=== PATIENT | female | born 2000 | race African-American/Black ===

== ENCOUNTER 2025-05-25 07:18 | Inpatient (IN) | payer BC, OTHER ==
[~2025-05-25] VITALS: Ht 149.9 cm; Wt 123.6 kg
--- NOTE | 2025-05-25 07:57 | ED.PDOC ---
History of Present Illness HPI Comments 25 y/o obese F presents with c/c of nonradiating, right flank pain. Patient endorses on sudden, unprovoked, and atraumatic onset of pain, with no prior history of, that awoke her from her sleep, this morning. She reports on having associated increase urine frequency. Denial of any abdominal pain, nausea, vom iting, dysuria, fever, or further acute symptoms. No reported previous abdominal surgeries, history of kidney stones or medication use, or current . 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 History Social History Smoker: Non-Smoker Alcohol: Denies ETOH Use Drugs: Denies Drug Use Lives In: Home All Other Systems: Reviewed and Negative (Comprehensive review of systesm are negative unless stated in HPI) Physical Exam General Appearance: No Apparent Distress, Obese HEENT: Normal ENT Inspection, Pharynx Normal, TMs Normal Neck: Full Range of Motion, Non-Tender, Normal, Normal Inspection Respiratory: Chest Non-Tender, Lungs Clear, No Accessory Muscle Use, No Respiratory Distress, Normal Breath Sounds Cardiovascular: No Edema, No JVD, No Murmur, No Gallop, Normal Peripheral Pulses, Regular Rate/Rhythm Breast Exam: Deferred Gastrointestinal: No Organomegaly, No Pulsatile Mass, Normal Bowel Sounds, Soft, Tenderness (Right CVA) Genitalia: Deferred Pelvic: Deferred Rectal: Deferred Extremities: No calf tenderness, Normal capillary refill, Normal inspection, Normal range of motion, Non-tender, No pedal edema Musculoskeletal : Location: Right Extremity Location: Other (CVA tenderness) Apperance: Normal Neurologic: Alert, 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 Was a procedure done?: No Differential Dx Considerations may include: Nephrolithiasis, pyelonephritis, cystitis, cholelithiasis, cholecystitis, hepatitis, musculoskeletal pain, among others X-Ray, Labs, Meds, VS Vital Signs Date Time Temp Pulse Resp B/P (MAP) Pulse Ox O2 Delivery O2 Flow Rate FiO2 05/25/25 09:30 98.4 94 18 157/90 (112) 100 98.4 05/25/25 08:16 95 18 143/82 05/25/25 08:07 97.9 95 18 143/82 (102) 100 97.9 05/25/25 08:07 95 18 100 Room Air 05/25/25 07:20 98.9 109 17 143/93 98 98.9 Lab Test 05/25/25 07:55 05/25/25 07:53 Range/Units White Blood Count 5.1 4.4-10.8 10^3/uL Red Blood Count 4.50 4.0-5.20 10^6/uL Hemoglobin 11.6 L 12.2-16.2 g/dL Hematocrit 35.0 L 36.0-46.0 % Mean Corpuscular Volume 77.9 L 80.0-100.0 fL Mean Corpuscular Hemoglobin 25.7 L 28.0-32.0 pg Mean Corpuscular Hemoglobin Concent 33.0 32.0-36.0 g/dL Red Cell Distribution Width 15.0 H 11.8-14.3 % Platelet Count 426 140-450 10^3/uL Mean Platelet Volume 7.1 6.9-10.8 fL Neutrophils (%) (Auto) 55.2 37.0-80.0 % Lymphocytes (%) (Auto) 35.2 10.0-50.0 % Monocytes (%) (Auto) 6.8 0.0-12.0 % Eosinophils (%) (Auto) 2.1 0.0-7.0 % Basophils (%) (Auto) 0.7 0.0-2.0 % Neutrophils # (Auto) 2.8 1.6-8.6 10 ^3/uL Lymphocytes # (Auto) 1.8 0.4-5.4 10 ^3/uL Monocytes # (Auto) 0.3 0-1.3 10 ^3/uL Eosinophils # (Auto) 0.1 0-0.8 10 ^3/uL Basophils # (Auto) 0 0-0.2 10 ^3/uL Nucleated Red Blood Cells 0.3 % Sodium Level 141 136-145 mmol/L Potassium Level 4.3 3.5-5.1 mmol/L Chloride Level 108 H 98-107 mmol/L Carbon Dioxide Level 22 20-31 mmol/L Anion Gap 11 5-15 Blood Urea Nitrogen 9 9-23 mg/dL Creatinine 1.04 H 0.550-1.02 mg/dL Glomerular Filtration Rate Calc 76 >90 mL/min BUN/Creatinine Ratio 8.7 L 10.0-20.0 Serum Glucose 133 H 74-106 mg/dL Calcium Level 9.3 8.7-10.4 mg/dL Total Bilirubin 0.2 0.2-1.0 mg/dL Aspartate Amino Transferase (AST) 14 13-40 U/L Alanine Aminotransferase (ALT) 13 7-40 U/L Alkaline Phosphatase 101 46-116 U/L Total Protein 8.0 5.7-8.2 g/dL Albumin 4.5 3.2-4.8 g/dL Urine Color Light-orange Yellow Urine Clarity Ex.turbid Clear Urine pH 6.0 5.0-9.0 Urine Specific [place] 1.029 1.001-1.035 Urine Protein Trace H Negative Urine Ketones Negative Negative Urine Blood Negative Negative /uL Urine Nitrite Negative Negative Urine Bilirubin Negative Negative Urine Urobilinogen Normal Negative mg/dL Urine Leukocyte Esterase Trace Negative /uL Urine RBC 3 0 - 4 /hpf Urine Microscopic WBC 7 H 0-5 /HPF Urine Squamous Epithelial Cells Many <5 /hpf Urine Bacteria None seen None Seen /hpf Urine Mucus Few None Seen Urine Glucose Normal Normal mg/dL Urine Test Negative Negative Current Medications Medications (Trade) Dose Ordered Sig/Adriana Route Start Time Stop Time Status Last Admin Sodium Chloride 1,000 ml @ 1,000 mls/hr Q1H ONCE IV 05/25/25 07:45 05/25/25 08:44 DC 05/25/25 08:15 Ondansetron HCl (Zofran) 4 mg ONCE ONCE IV 05/25/25 07:45 05/25/25 07:47 DC 05/25/25 08:15 Morphine Sulfate 4 mg ONCE ONCE IV 05/25/25 07:45 05/25/25 07:47 DC 05/25/25 08:[address] [address] Ph: [phone] DIAGNOSTIC IMAGING Diagnostic Imaging Report : [id number] Signed PATIENT: DIANNA LITTLEJOHN ACCT: [id number] UNIT: [id number] : 2000 LOC: ER ROOM / BED: / AGE / SEX: 25 / F ADM STATUS: REG ER SERVICE 0828 ORDERING PHYSICIAN: ANDRZEJ KELLEY MD PROCEDURE(s): ABPLIV - CT AB PEL WITH IV CON ONLY REASON: abdominal pain ORDER NUMBER(s): [id number], ACCESSION NUMBER(s): [id number] CLINICAL INFORMATION: Abdominal pain. TECHNIQUE: Axial CT images of the abdomen and pelvis were obtained after the uneventful administration of 100 mL Omnipaque 300 IV contrast. Coronal and sagittal reformatted images were obtained, reviewed, and stored. All CT scans at this medical facility are performed using dose modulation techniques as appropriate to a performed exam including the following: Automated exposure control was utilized; adjustment of the MA and/or KV according to patient size; and use of iterative reconstruction technique. CTDIvol = 27.68 mGy DLP = 1403.93 mGy-cm COMPARISON: None FINDINGS: Lung bases: Lung bases are clear. Liver: Unremarkable. No abnormal density or focal lesion. Biliary: No calcified gallstones or biliary ductal dilatation. Spleen: Unremarkable. Pancreas: Unremarkable. No inflammatory changes, ductal dilatation, or mass identified. Adrenal glands: Unremarkable. No mass. Kidneys: Iiod-tz-dhzukqkz right hydronephrosis and hydroureter with 2.5 mm calculus in the distal right ureter just proximal to the ureterovesical junction. Aorta/Vascular: No aneurysm or significant calcification. Lymph Nodes: No mass or lymphadenopathy. Bowel/mesentery: No small bowel obstruction. No free air or free fluid. Appendix is visualized and appears unremarkable. Scattered small colonic diverticula without adjacent inflammatory changes to suggest diverticulitis. Pelvic organs: Grossly unremarkable. Bladder: Underdistended and not well evaluated. Grossly unremarkable. Abdominal wall: No mass or hernia. Bones: No acute fracture or focal intraosseous lesion. IMPRESSION: 1. [id number] right hydronephrosis with 2.5 mm obstructing calculus in the distal right ureter. 2. Scattered small colonic diverticula without adjacent inflammatory changes to suggest diverticulitis. 3. Additional findings as described above. ATED BY: DAKOTA CORTEZ DO DICTATED DATE/TIME: 05/25/25939 SIGNED BY: DAKOTA CORTEZ DO SIGNED DATE/TIME: 05/25/25939 CC: Time of 1ST Reevaluation: 07:50 Reevaluation 1ST: Unchanged Patient Education/Counseling: Diagnosis, Treatment, Need For Follow Up Family Education/Counseling: No Family Present Additional Information Previous visits reviewed: N/A Labs ordered and reviewed: urine test, UA, CMP, CBC, Images ordered and reviewed: CT abdomen/pelvis w/IV contrast Additional personnel interviewed: N/A SEPSIS Sepsis Screen Date sepsis recognized/suspect: May 25, 2025 Time Sepsis recognized/suspect: 721 Recent Procedure: No On Antibiotic Therapy: No Respiratory Rate >20: No Heart Rate >90: Yes Temp<36 C (96.8 F) or >38.3 C: No SBP <90 or MAP <65 mmHG: No New Acute Mental Status Change: No Is the patient on CPAP, BIPAP,: No Physician Orders Ct Ab Pel With Iv Con Only (05/25/25 08:28) Ketorolac Injection (Toradol Injection) (05/25/25 10:00) Tamsulosin Hydrochloride (Flomax) (05/25/25 10:00) Vital Signs Date Time Temp Pulse Resp B/P (MAP) Pulse Ox O2 Delivery O2 Flow Rate FiO2 05/25/25 09:30 98.4 94 18 157/90 (112) 100 98.4 05/25/25 08:16 95 18 143/82 05/25/25 08:07 97.9 95 18 143/82 (102) 100 97.9 05/25/25 08:07 95 18 100 Room Air 05/25/25 07:20 98.9 109 17 143/93 98 98.9 Laboratory Tests Test 05/25/25 07:55 White Blood Count 5.1 10^3/uL (4.4-10.8) Medications Medications Dose Ordered Sig/Adriana Route Start Time Stop Time Status Last Admin Dose Admin Morphine Sulfate 4 mg ONCE ONCE IV 05/25/25 07:45 05/25/25 07:47 DC 05/25/25 08:16 Ondansetron HCl 4 mg ONCE ONCE IV 05/25/25 07:45 05/25/25 07:47 DC 05/25/25 08:15 Sodium Chloride 1,000 ml @ 1,000 mls/hr Q1H ONCE IV 05/25/25 07:45 05/25/25 08:44 DC 05/25/25 08:15 Departure 1 Departure Time of Disposition: 09:59 (Patient presented with abdominal pain that was concerning for possible appendicits, gastritis, cholecystitis, colitis, gastroenteritis, sbo, or orther possible surgical emergency. Data: 1. I ordered and reviewed the result of at least 3 labs including a CBC, BMP, and Urinalysis. 2. I independently interpreted the following tests: CT Abdomen and Pelvis is concerning for ureteral colic .Risk:This patient has a high risk of morbidity due to further diagnostic testing or treatment and may suffer from an acute abdo navdeep process disorder. Workup reveals ureteral colic and intractable pain and patient should be admitted for further workup. and possible expert consultation. ) Impression: Primary Impression: Ureteral colic Additional Impression: Intractable pain Disposition: ADMITTED INPATIENT Admit to: Med Surg Condition: Serious Discharged With: Self Critical Care Note Critical Care Time?: No Stability Stability form required: No Heart Score Heart Score: Heart Score Response (Comments) Value History N/A 0 EKG N/A 0 Age N/A 0 Risk Factors N/A 0 Troponin N/A 0 Total 0 I personally scribed for ANDRZEJ KELLEY MD ([email or web address]) on 05/25/25 at 07:57. Electronically submitted by Dion Varghese ([email or web address]). I personally scribed for ANDRZEJ KELLEY MD ([email or web address]) on 05/25/25 at 09:54. Electronically submitted by Dion Varghese ([email or web address]). ANDRZEJ KELLEY MD May 25, 2025 07:57
[2025-05-25 08:00] LABS: Urine Protein, UAD TRACE (Negative)
[2025-05-25 08:10] LABS: Hematocrit 35.0 % (36.0-46.0); Hemoglobin 11.6 g/dL (12.2-16.2); Mean Corpuscular Hemoglobin 25.7 pg (28.0-32.0); Mean Corpuscular Volume 77.9 fL (80.0-100.0); Nucleated Red Blood Cells % 0.3 %
[2025-05-25] MEDS: ONDANSETRON HCL 4 MG/2 ML VIAL IV ONE ×3 (08:15→20:13)
[2025-05-25] MEDS: SODIUM CHLORIDE 0.9% 1,000 ML IV ONE (08:15)
[2025-05-25] MEDS: MORPHINE SULFATE 4 MG/ML SYR/VIAL IV ONE ×3 (08:16→20:13)
[2025-05-25 08:24] LABS: Alanine Aminotransferase 13 U/L (7-40); Albumin 4.5 g/dL (3.2-4.8); Alkaline Phosphatase 101 U/L (46-116); Anion Gap 11 (5-15); BUN/Creatinine Ratio 8.7 (10.0-20.0); Calcium 9.3 mg/dL (8.7-10.4); Carbon Dioxide 22 mmol/L (20-31); Potassium 4.3 mmol/L (3.5-5.1); Sodium 141 mmol/L (136-145); Total Protein 8.0 g/dL (5.7-8.2)
[2025-05-25 08:25] LABS: Bilirubin, Total 0.2 mg/dL (0.2-1.0); Blood Urea Nitrogen 9 mg/dL (9-23); Chloride 108 mmol/L (98-107); Glucose 133 mg/dL (74-106)
[2025-05-25] MEDS: IOHEXOL 300 MG/ML 100ML BOTTLE IJ ONE (09:02)
--- NOTE | 2025-05-25 09:42 | DVH ---
CLINICAL INFORMATION: Abdominal pain. TECHNIQUE: Axial CT images of the abdomen and pelvis were obtained after the uneventful administration of 100 mL Omnipaque 300 IV contrast. Coronal and sagittal reformatted images were obtained, reviewed, and stored. All CT scans at this medical facility are performed using dose modulation techniques as appropriate to a performed exam including the following: Automated exposure control was utilized; adjustment of the MA and/or KV according to patient size; and use of iterative reconstruction technique. CTDIvol = 27.68 mGy DLP = 1403.93 mGy-cm COMPARISON: None FINDINGS: Lung bases: Lung bases are clear. Liver: Unremarkable. No abnormal density or focal lesion. Biliary: No calcified gallstones or biliary ductal dilatation. Spleen: Unremarkable. Pancreas: Unremarkable. No inflammatory changes, ductal dilatation, or mass identified. Adrenal glands: Unremarkable. No mass. Kidneys: Clhx-ab-lqiihwzj right hydronephrosis and hydroureter with 2.5 mm calculus in the distal right ureter just proximal to the ureterovesical junction. Aorta/Vascular: No aneurysm or significant calcification. Lymph Nodes: No mass or lymphadenopathy. Bowel/mesentery: No small bowel obstruction. No free air or free fluid. Appendix is visualized and appears unremarkable. Scattered small colonic diverticula without adjacent inflammatory changes to suggest diverticulitis. Pelvic organs: Grossly unremarkable. Bladder: Underdistended and not well evaluated. Grossly unremarkable. Abdominal wall: No mass or hernia. Bones: No acute fracture or focal intraosseous lesion. IMPRESSION: 1. [id number]-[id number] right hydronephrosis with 2.5 mm obstructing calculus in the distal right ureter. 2. Scattered small colonic diverticula without adjacent inflammatory changes to suggest diverticulitis. 3. Additional findings as described above.
[2025-05-25] MEDS: TAMSULOSIN HYDROCHLORIDE 0.4 MG CAP PO ONE ×2 (10:20→20:24)
[2025-05-25] MEDS: KETOROLAC TROMETH 30 MG/ML 1ML VIAL IV ONE (10:28)
[2025-05-25] MEDS ORDERED: DOCUSATE SOD 100 MG CAP PO PRN (15:15)
[2025-05-25] MEDS ORDERED: NITROGLYCERIN 0.4 MG SL TAB SL PRN (15:15)
[2025-05-25] MEDS ORDERED: MORPHINE SULFATE 4 MG/ML SYR/VIAL IV PRN ×2 (15:45)
[2025-05-25] MEDS: HYDROcodone-ACET 5/325MG TAB PO PRN (15:51)
[2025-05-25 19:00] VITALS: PULSE 82; RESP 22; O2SAT 98
[2025-05-25] MEDS: LACTATED RINGER'S 1,000 ML IV SCH (19:45)
--- NOTE | 2025-05-25 19:46 | DVHHPRES ---
History of Present Illness Resident Creating Document: CINDY WEBER RESIDENT History of Present Illness Kirsten Coy, A 25-year-old obese female with no past medical and surgical history except panic disorder presents ambulatory to the ED with moderate, nonradiation right flank pain of sudden, unprovoked, atraumatic onset that began this morning and awoke her from sleep. She reports increased urinary frequency but denies abdominal pain, nausea, vomiting, dysuria, fever, prior similar episodes, previous abdominal surgeries, history of kidney stones, medication use, or . No prehospital treatment was given. PMHx: Panic Disorder. PSHx: None Family history: Noncontributory. Social history: She is a nonsmoker, denies alcohol and illicit drug use, and lives at home. OBGYN: heavy menstruation, otherwise noncontributory. Review of Systems Constitutional: Yes: Malaise; No: Fever, Chills, Sweats, Weakness, Other Eyes: No: Pain, Vision change, Conjunctivae inflammation, Eyelid inflammation, Other, Redness ENT: No: Ear pain, Ear discharge, Nose pain, Nose discharge, Nose congestion, Mouth pain, Mouth swelling, Throat pain, Throat swelling, Other Respiratory: No: Cough, Dry, Shortness of breath, SOB with excertion, Wheezing, Hemoptysis, Pleuritic Pain, Sputum, Wheezing, Other Cardiovascular: No: Chest Pain, Palpitations, Orthopnea, Paroxysmal Noc. Dyspnea, Edema, Lt Headedness, Other Gastrointestinal: No: Nausea, Vomiting, Abdominal Pain, Diarrhea, Constipation, Melena, Hematochezia, Other Genitourinary: Dysuria, Frequency Musculoskeletal: back pain; No: other, neck pain, shoulder pain, arm pain, hand pain, leg pain, foot pain Skin: No: Rash, Lesions, Jaundice, Bruising, Other Neurological: No: Weakness, Numbness, Incoordination, Change in speech, Confusion, Seizures, Other Allergies: Coded Allergies: NO KNOWN ALLERGIES (Unverified , 05/25/25) Medications Current Medications Medications Dose Ordered Sig/Adriana Route Start Time Stop Time Status Last Admin Dose Admin Acetaminophen/ Hydrocodone Bitart 1 tab Q4HP PRN PO 05/25/25 15:15 05/25/25 15:51 1 TAB Docusate Sodium 100 mg BIDPRN PRN PO 05/25/25 15:15 Acetaminophen 650 mg Q6HP PRN PO 05/25/25 15:15 Morphine Sulfate 2 mg Q4HPRN PRN IV 05/25/25 15:45 Nitroglycerin 0.4 mg Q5MINP PRN SL 05/25/25 15:15 Morphine Sulfate 2 mg Q30M PRN IV 05/25/25 15:45 Exam Vital Signs Vital Signs Date Time Temp Pulse Resp B/P (MAP) Pulse Ox O2 Delivery O2 Flow Rate FiO2 05/25/25 19:00 82 22 132/61 (84) 98 05/25/25 19:00 Room Air* 0 21 05/25/25 16:44 98.2 98.2 General Appearance: Alert, Oriented X3, Cooperative, No acute distress HEENT: Atraumatic, PERRLA, EOMI, Other (dry mucosa, piercing. ) Respiratory: Clear to auscultation, Normal air movement Cardiovascular: Regular rate, Normal S1, Normal S2, No murmurs Abdominal: Normal bowel sounds, Soft, Other (suprapubic tenderness. central obesity. ) Extremities: No clubbing, No cyanosis, No edema, Normal pulses, No tenderness/swelling Skin: No rashes, No breakdown, No significant lesion Neuro: Normal gait, Normal speech, Strength at 5/5 X4 ext, Normal tone, Sensation intact, Cranial nerves 3-12 NL, Reflexes 2+ Psych/Mental Status: Mental status NL, Mood NL Labs/Xrays Labs Test 05/25/25 07:55 05/25/25 07:53 Range/Units White Blood Count 5.1 4.4-10.8 10^3/uL Red Blood Count 4.50 4.0-5.20 10^6/uL Hemoglobin 11.6 L 12.2-16.2 g/dL Hematocrit 35.0 L 36.0-46.0 % Mean Corpuscular Volume 77.9 L 80.0-100.0 fL Mean Corpuscular Hemoglobin 25.7 L 28.0-32.0 pg Mean Corpuscular Hemoglobin Concent 33.0 32.0-36.0 g/dL Red Cell Distribution Width 15.0 H 11.8-14.3 % Platelet Count 426 140-450 10^3/uL Mean Platelet Volume 7.1 6.9-10.8 fL Neutrophils (%) (Auto) 55.2 37.0-80.0 % Lymphocytes (%) (Auto) 35.2 10.0-50.0 % Monocytes (%) (Auto) 6.8 0.0-12.0 % Eosinophils (%) (Auto) 2.1 0.0-7.0 % Basophils (%) (Auto) 0.7 0.0-2.0 % Neutrophils # (Auto) 2.8 1.6-8.6 10 ^3/uL Lymphocytes # (Auto) 1.8 0.4-5.4 10 ^3/uL Monocytes # (Auto) 0.3 0-1.3 10 ^3/uL Eosinophils # (Auto) 0.1 0-0.8 10 ^3/uL Basophils # (Auto) 0 0-0.2 10 ^3/uL Nucleated Red Blood Cells 0.3 % Sodium Level 141 136-145 mmol/L Potassium Level 4.3 3.5-5.1 mmol/L Chloride Level 108 H 98-107 mmol/L Carbon Dioxide Level 22 20-31 mmol/L Anion Gap 11 5-15 Blood Urea Nitrogen 9 9-23 mg/dL Creatinine 1.04 H 0.550-1.02 mg/dL Glomerular Filtration Rate Calc 76 >90 mL/min BUN/Creatinine Ratio 8.7 L 10.0-20.0 Serum Glucose 133 H 74-106 mg/dL Calcium Level 9.3 8.7-10.4 mg/dL Total Bilirubin 0.2 0.2-1.0 mg/dL Aspartate Amino Transferase (AST) 14 13-40 U/L Alanine Aminotransferase (ALT) 13 7-40 U/L Alkaline Phosphatase 101 46-116 U/L Total Protein 8.0 5.7-8.2 g/dL Albumin 4.5 3.2-4.8 g/dL Beta HCG, Quantitative 0.8 L 1.5-4.2 mIU/mL Urine Color Light-orange Yellow Urine Clarity Ex.turbid Clear Urine pH 6.0 5.0-9.0 Urine Specific [place] 1.029 1.001-1.035 Urine Protein Trace H Negative Urine Ketones Negative Negative Urine Blood Negative Negative /uL Urine Nitrite Negative Negative Urine Bilirubin Negative Negative Urine Urobilinogen Normal Negative mg/dL Urine Leukocyte Esterase Trace Negative /uL Urine RBC 3 0 - 4 /hpf Urine Microscopic WBC 7 H 0-5 /HPF Urine Squamous Epithelial Cells Many <5 /hpf Urine Bacteria None seen None Seen /hpf Urine Mucus Few None Seen Urine Glucose Normal Normal mg/dL Urine Test Negative Negative SEPSIS Sepsis Screen Date sepsis recognized/suspect: May 25, 2025 Time Sepsis recognized/suspect: 808 Recent Procedure: No On Antibiotic Therapy: No Respiratory Rate >20: No Heart Rate >90: No Temp<36 C (96.8 F) or >38.3 C: No SBP <90 or MAP <65 mmHG: No New Acute Mental Status Change: No Is the patient on CPAP, BIPAP,: No Physician Orders Admit (05/25/25 15:13) Allergies (05/25/25 15:13) Code Status (05/25/25 15:13) Hydrocodone-Acet 5/325mg Tab ([place] 5/32 (05/25/25 15:15) Docusate Sodium Capsule (Colace Capsule) (05/25/25 15:15) Complete Blood Count (05/26/25 04:00) Comprehensive Metabolic Panel (05/26/25 04:00) Npo (Nothing By Mouth) Diet (05/25/25 Dinner) Condition: Serious (05/25/25 15:13) Acetaminophen Tablet (Tylenol Tablet) (05/25/25 15:15) Sequential Compression Device (05/25/25 ) Nitroglycerin Sublingual (Ntrostat Subli (05/25/25 15:15) Oxygen By Nasal Cannula (05/25/25 15:13) Stat Ekg For Chest Pain (05/25/25 15:13) Notify Md Of Changes From Base (05/25/25 15:13) Medical Physics Professor For 24 Hours (05/25/25 15:13) Emergency Dysrhythmia Protocol (05/25/25 15:13) Rhythm Strips Once Every Shift (05/25/25 15:13) Morphine Sulfate Injection (05/25/25 15:45) Morphine Sulfate Injection (05/25/25 15:45) Lactated Ringers Lr (05/25/25 19:45) Tamsulosin Hydrochloride (Flomax) (05/25/25 19:45) Tamsulosin Hydrochloride (Flomax) (05/26/25 18:00) Pantoprazole Tablet (Protonix Tablet) (05/26/25 06:00) Blood Culture (05/25/25 19:35) Urine Bacterial Culture (05/25/25 19:35) Ceftriaxone Ivpb Rocephin (05/26/25 09:00) Ceftriaxone Ivpb Rocephin (05/25/25 19:45) Pantoprazole (Protonix) (05/26/25 10:00) Pantoprazole (Protonix) (05/25/25 19:45) Ferritin (05/25/25 19:35) Iron Panel (05/25/25 19:35) Stool Occult Blood (05/25/25 19:35) Hemoglobin A1c (05/25/25 19:35) Thyroid Stimulating Hormone (05/25/25 19:35) Vital Signs Date Time Temp Pulse Resp B/P (MAP) Pulse Ox O2 Delivery O2 Flow Rate FiO2 05/25/25 19:00 82 22 132/61 (84) 98 05/25/25 19:00 82 22 98 Room Air* 0 21 05/25/25 16:44 98.2 100 18 116/71 (86) 100 98.2 05/25/25 14:16 98.4 108 18 122/59 (80) 98 98.4 Laboratory Tests Test 05/25/25 07:55 White Blood Count 5.1 10^3/uL (4.4-10.8) Medications Medications Dose Ordered Sig/Adriana Route Start Time Stop Time Status Last Admin Dose Admin Acetaminophen/ Hydrocodone Bitart 1 tab Q4HP PRN PO 05/25/25 15:15 05/25/25 15:51 1 TAB Ketorolac Tromethamine 15 mg ONCE ONCE IV 05/25/25 10:00 05/25/25 10:14 DC 05/25/25 10:28 15 MG Morphine Sulfate 4 mg ONCE ONCE IV 05/25/25 07:45 05/25/25 07:47 DC 05/25/25 08:16 4 MG Ondansetron HCl 4 mg ONCE ONCE IV 05/25/25 07:45 05/25/25 07:47 DC 05/25/25 08:15 4 MG Sodium Chloride 1,000 ml @ 1,000 mls/hr Q1H ONCE IV 05/25/25 07:45 05/25/25 08:44 DC 05/25/25 08:15 1,000 MLS/HR Tamsulosin HCl 0.4 mg ONCE ONCE PO 05/25/25 10:00 05/25/25 10:14 DC 05/25/25 10:20 0.4 MG Assessment/Plan Assessment/Plan #acute renal colic: Microscopic hematuria, Ruled out . Iehk-ih-udlwpiag right hydronephrosis with 2.5 mm obstructing calculus in the distal right ureter. Pain management, IV fluid, tamsulosin to continue, if no improvement with a repeat ultrasound tomorrow, consider Urology consult. nausea symptomatic control. check lipase to r/o pancreatitis. #Renal stone: noted in CT, IV fluid, pain control and tamsulosin. not consulted urology at admission. #Acute complicated UTI: Urgency frequency positive, UA unremarkable but hydronephrosis, blood and urine culture f/u.hem IV ceftriaxone daily. #MAYLIN, unknown baseline: Check input output, IV hydration to continue, check urine electrolytes, repeat ultrasound of the kidneys tomorrow morning. #Panic disorder: Occasional need of Xanax as needed. Denies any active anxiety or precipitating panic. in hospital as needed atarax. #Grade 3 obesity: 52.4 BMI, weight loss counseling and lifestyle modification to continue, check for HbA1c.t #Microcytic hypochromic anemia: No known baseline, hemoglobin 11.6, no known active bleeding, MCV 77.9, RDW 15.0, check iron panel ferritin and stool occult blood. Likely blood loss due to heavy menstruation/irregular menstruation. Start replenishment based on the results. #Scattered small colonic diverticula: Avoid constipation high-fiber diet with plenty of water. CT reveals no diverticulitis. PUD prophylaxis: protonix 40mg/ IV daily DVT prophylaxis: SCD/brisk movement. Barriers to discharge: Medical diagnosis and management in progress. Ind ependent at baseline. PCP: [facility], patient does not follow up with PCP locally. Specialist Relevant To Admission: Urologist, not consulted. Case discussed with Dr. Hogue. Code Status: Full Code. Discussion for goals of care and care plan needed total 29 minutes bedside. Plan discussed with: Patient My Orders Orders - CINDY WEBER RESIDENT Procedure Category Date Status Time Admit ADMIT 05/25/25 Transmitted 15:13 Allergies DESTINEY 05/25/25 In Process 15:13 Code Status CODE 05/25/25 Transmitted 15:13 Hydrocodone-Acet PHA 05/25/25 In Process 5/325mg Tab ([place]den 15:15 Docusate Sodium PHA 05/25/25 In Process Capsule (Colace 15:15 Complete Blood Count LAB 05/26/25 Verified 04:00 Comprehensive LAB 05/26/25 Verified Metabolic Panel 04:00 Npo (Nothing By DIET 05/25/25 Transmitted Mouth) Diet Dinner Condition: Serious DESTINEY 05/25/25 In Process 15:13 Acetaminophen Tablet PHA 05/25/25 In Process (Tylenol Tablet) 15:15 Sequential DESTINEY 05/25/25 In Process Compression Device Nitroglycerin PHA 05/25/25 In Process Sublingual (Ntrostat 15:15 Oxygen By Nasal RT 05/25/25 Transmitted Cannula 15:13 Stat Ekg For Chest DESTINEY 05/25/25 In Process Pain 15:13 Notify Of Changes DESTINEY 05/25/25 In Process From Base 15:13 Medical Physics Professor For DESTINEY 05/25/25 In Process 24 Hours 15:13 Emergency Dysrhythmia DESTINEY 05/25/25 In Process Protocol 15:13 Rhythm Strips Once DESTINEY 05/25/25 In Process Every Shift 15:13 Morphine Sulfate PHA 05/25/25 In Process Injection 15:45 Morphine Sulfate PHA 05/25/25 In Process Injection 15:45 Lactated Ringers Lr PHA 05/25/25 Transmitted 19:45 Tamsulosin PHA 05/25/25 Transmitted Hydrochloride (Flomax) 19:45 Tamsulosin PHA 05/26/25 Transmitted Hydrochloride (Flomax) 18:00 Pantoprazole Tablet PHA 05/26/25 Transmitted (Protonix Tablet) 06:00 Blood Culture TRACI 05/25/25 Logged 19:35 Urine Bacterial TRACI 05/25/25 Logged Culture 19:35 Ceftriaxone Ivpb PHA 05/26/25 Transmitted Rocephin 09:00 Ceftriaxone Ivpb PHA 05/25/25 Transmitted Rocephin 19:45 Pantoprazole PHA 05/26/25 Transmitted (Protonix) 10:00 Pantoprazole PHA 05/25/25 Transmitted (Protonix) 19:45 Ferritin LAB 05/25/25 Logged 19:35 Iron Panel LAB 05/25/25 Logged 19:35 Stool Occult Blood LAB 05/25/25 Logged 19:35 Hemoglobin A1c LAB 05/25/25 Logged 19:35 Thyroid Stimulating LAB 05/25/25 Logged Hormone 19:35 Date of Service: May 25, 2025 Billing Provider: HARIS HOGUE MD Common Visit Codes: [id number] INP/OBS CARE (HIGH) Secondary Visit Codes: [id number] CARE PLAN 30 MINUTES CINDY WEBER RESIDENT May 25, 2025 19:46
[2025-05-25] MEDS: PANTOPRAZOLE 40 MG/10 ML VIAL INJ IV ONE (20:24)
[2025-05-25 21:00] VITALS: BP 123/68; PULSE 85; RESP 16; TEMP 98.7; O2SAT 97
[2025-05-25 21:25] LABS: Total Iron Binding Capacity 415.0 ug/dL (250-425)
[2025-05-25 21:27] LABS: Iron 41.0 ug/dL (50-170)
[2025-05-25 21:37] VITALS: BP 123/68; PULSE 89; RESP 16; RESP 18; TEMP 98.7; O2SAT 97
[2025-05-25] MEDS ORDERED: LORA-655 PO (22:00)
[2025-05-25] MEDS ORDERED: LORazepam 0.5 MG TAB PO PRN (23:00)
[2025-05-25] MEDS: LORazepam 0.5 MG TAB PO ONE (23:15)
[2025-05-26] VITALS (9 sets, daily range): BP systolic 100–131; BP diastolic 53–83; PULSE 78–137; RESP 16–20; TEMP 98.3–98.8; O2SAT 97–99
[2025-05-26] MEDS: ACETAMINOPHEN 325 MG TAB PO PRN (05:40)
[2025-05-26] MEDS ORDERED: PANTOPRAZOLE 40 MG TAB PO SCH (06:00)
[2025-05-26 06:18] LABS: Nucleated Red Blood Cells % 0.1 %
[2025-05-26 06:21] LABS: Hematocrit 30.8 % (36.0-46.0); Hemoglobin 10.2 g/dL (12.2-16.2); Mean Corpuscular Hemoglobin 25.7 pg (28.0-32.0); Mean Corpuscular Volume 77.8 fL (80.0-100.0)
[2025-05-26 06:49] LABS: Alanine Aminotransferase 11 U/L (7-40); Alkaline Phosphatase 81 U/L (46-116); Anion Gap 10 (5-15); BUN/Creatinine Ratio 9.8 (10.0-20.0); Blood Urea Nitrogen 12 mg/dL (9-23); Carbon Dioxide 22 mmol/L (20-31); Glucose 90 mg/dL (74-106); Potassium 4.0 mmol/L (3.5-5.1); Sodium 139 mmol/L (136-145); Total Protein 6.6 g/dL (5.7-8.2)
[2025-05-26 06:50] LABS: Albumin 3.6 g/dL (3.2-4.8)
[2025-05-26 06:52] LABS: Bilirubin, Total 0.3 mg/dL (0.2-1.0); Calcium 8.7 mg/dL (8.7-10.4); Chloride 107 mmol/L (98-107)
--- NOTE | 2025-05-26 09:42 | DVHINCON2 ---
Date of service: May 26, 2025 Referring Physician Hospitalist Reason for Consultation ureteral stone History of Present Illness 25 yo female with acute onset right flank pain. Urology consulted for evaluation of right distal stone 2.5 mm with minimal hydronephrosis. Chart,labs, imaging and vitals reviewed in full. Family History: Cerebrovascular accident (CVA) Hypertension Allergies: Coded Allergies: NO KNOWN ALLERGIES (Unverified , 05/25/25) Home Meds Reported Medications Lorazepam (Ativan) 0.5 Mg Tab, 0.25 MG PO PRN for anxiety, TAB 05/25/25 Current Medications Current Medications Medications (Trade) Dose Ordered Sig/Adriana Route PRN Reason Start Time Stop Time Status Last Admin Acetaminophen/ Hydrocodone Bitart ([place] 5/325MG Tab) 1 tab Q4HP PRN PO MODERATE PAIN (4-6 PAIN SCALE) 05/25/25 15:15 05/25/25 15:51 Docusate Sodium (Colace Capsule) 100 mg BIDPRN PRN PO FOR CONSTIPATION 05/25/25 15:15 Acetaminophen (Tylenol Tablet) 650 mg Q6HP PRN PO PAIN SCALE 1-3 OR TEMP>100.4 05/25/25 15:15 05/26/25 05:40 Morphine Sulfate 2 mg Q4HPRN PRN IV SEVERE PAIN (7-10 PAIN SCALE) 05/25/25 15:45 Nitroglycerin (Ntrostat Sublingual) 0.4 mg Q5MINP PRN SL FOR CHEST PAIN 05/25/25 15:15 Morphine Sulfate 2 mg Q30M PRN IV FOR CHEST PAIN 05/25/25 15:45 Lactated Ringer's 1,000 ml @ 125 mls/hr Q8H IV 05/25/25 19:45 05/26/25 05:42 Tamsulosin HCl (Flomax) 0.4 mg QPM PO 05/26/25 18:00 Pantoprazole Sodium (Protonix Tablet) 40 mg DAILY@0600 PO 05/26/25 06:00 Hold Ceftriaxone Sodium 50 ml @ 100 mls/hr DAILY@09 IV 05/26/25 09:00 Pantoprazole Sodium (Protonix) 40 mg DAILY IV 05/26/25 10:00 Cancel Pantoprazole Sodium (Protonix) 40 mg DAILY IV 05/26/25 10:00 Iron Sucrose 110 ml @ 110 mls/hr DAILY@1200 IV 05/26/25 12:00 05/30/25 11:59 Lorazepam (Ativan Tablet) 0.25 mg Q12HP PRN PO ANXIETY 05/25/25 23:00 Review of Systems right flank pain Vital Signs Vital Signs Date Time Temp Pulse Resp B/P (MAP) Pulse Ox O2 Delivery O2 Flow Rate FiO2 05/26/25 09:00 98.3 82 20 100/53 (69) 97 98.3 05/25/25 21:37 Room Air* 0 21 Labs/Diagnostic Data [place] [address] Ph: [phone] DIAGNOSTIC IMAGING Diagnostic Imaging Report : [id number] Signed PATIENT: DIANNA LITTLEJOHN ACCT: [id number] UNIT: [id number] : 2000 LOC: ER ROOM / BED: / AGE / SEX: 25 / F ADM STATUS: REG ER SERVICE 0828 ORDERING PHYSICIAN: ANDRZEJ KELLEY MD PROCEDURE(s): ABPLIV - CT AB PEL WITH IV CON ONLY REASON: abdominal pain ORDER NUMBER(s): [id number], ACCESSION NUMBER(s): [id number] CLINICAL INFORMATION: Abdominal pain. TECHNIQUE: Axial CT images of the abdomen and pelvis were obtained after the uneventful administration of 100 mL Omnipaque 300 IV contrast. Coronal and sagittal reformatted images were obtained, reviewed, and stored. All CT scans at this medical facility are performed using dose modulation techniques as appropriate to a performed exam including the following: Automated exposure control was utilized; adjustment of the MA and/or KV according to patient size; and use of iterative reconstruction technique. CTDIvol = 27.68 mGy DLP = 1403.93 mGy-cm COMPARISON: None FINDINGS: Lung bases: Lung bases are clear. Liver: Unremarkable. No abnormal density or focal lesion. Biliary: No calcified gallstones or biliary ductal dilatation. Spleen: Unremarkable. Pancreas: Unremarkable. No inflammatory changes, ductal dilatation, or mass identified. Adrenal glands: Unremarkable. No mass. Kidneys: Ekqw-el-cxctvhab right hydronephrosis and hydroureter with 2.5 mm calculus in the distal right ureter just proximal to the ureterovesical junction. Aorta/Vascular: No aneurysm or significant calcification. Lymph Nodes: No mass or lymphadenopathy. Bowel/mesentery: No small bowel obstruction. No free air or free fluid. Appendix is visualized and appears unremarkable. Scattered small colonic diverticula without adjacent inflammatory changes to suggest diverticulitis. Pelvic organs: Grossly unremarkable. Bladder: Underdistended and not well evaluated. Grossly unremarkable. Abdominal wall: No mass or hernia. Bones: No acute fracture or focal intraosseous lesion. IMPRESSION: 1. Wjzm-ry-wkioicwv right hydronephrosis with 2.5 mm obstructing calculus in the distal right ureter. 2. Scattered small colonic diverticula without adjacent inflammatory changes to suggest diverticulitis. 3. Additional findings as described above. ATED BY: DAKOTA CORTEZ DO DICTATED DATE/TIME: 05/25/25939 SIGNED BY: DAKOTA CORTEZ DO SIGNED DATE/TIME: 05/25/25939 CC: Labs Test 05/26/25 05:25 05/25/25 19:55 05/25/25 07:55 05/25/25 07:53 Range/Units White Blood Count 6.4 # 4.4-10.8 10^3/uL Red Blood Count 3.96 L 4.0-5.20 10^6/uL Hemoglobin 10.2 L 12.2-16.2 g/dL Hematocrit 30.8 #L 36.0-46.0 % Mean Corpuscular Volume 77.8 L 80.0-100.0 fL Mean Corpuscular Hemoglobin 25.7 L 28.0-32.0 pg Mean Corpuscular Hemoglobin Concent 33.1 32.0-36.0 g/dL Red Cell Distribution Width 14.9 H 11.8-14.3 % Platelet Count 344 140-450 10^3/uL Mean Platelet Volume 7.2 6.9-10.8 fL Neutrophils (%) (Auto) 63.7 37.0-80.0 % Lymphocytes (%) (Auto) 25.9 10.0-50.0 % Monocytes (%) (Auto) 9.0 0.0-12.0 % Eosinophils (%) (Auto) 1.1 0.0-7.0 % Basophils (%) (Auto) 0.3 0.0-2.0 % Neutrophils # (Auto) 4.1 1.6-8.6 10 ^3/uL Lymphocytes # (Auto) 1.7 0.4-5.4 10 ^3/uL Monocytes # (Auto) 0.6 0-1.3 10 ^3/uL Eosinophils # (Auto) 0.1 0-0.8 10 ^3/uL Basophils # (Auto) 0 0-0.2 10 ^3/uL Nucleated Red Blood Cells 0.1 % Sodium Level 139 136-145 mmol/L Potassium Level 4.0 3.5-5.1 mmol/L Chloride Level 107 98-107 mmol/L Carbon Dioxide Level 22 20-31 mmol/L Anion Gap 10 5-15 Blood Urea Nitrogen 12 9-23 mg/dL Creatinine 1.22 H 0.550-1.02 mg/dL Glomerular Filtration Rate Calc 63 >90 mL/min BUN/Creatinine Ratio 9.8 L 10.0-20.0 Serum Glucose 90 74-106 mg/dL Calcium Level 8.7 8.7-10.4 mg/dL Total Bilirubin 0.3 0.2-1.0 mg/dL Aspartate Amino Transferase (AST) 19 13-40 U/L Alanine Aminotransferase (ALT) 11 7-40 U/L Alkaline Phosphatase 81 46-116 U/L Total Protein 6.6 5.7-8.2 g/dL Albumin 3.6 3.2-4.8 g/dL Iron Level 41 L 50-170 ug/dL Total Iron Binding Capacity 415 250-425 ug/dL Percent Iron Saturation 9.9 L 15-50 % Ferritin 7.5 L 10-291 ng/mL Hemoglobin A1c 5.3 <5.7 % A1C Lipase 26 12-53 U/L Thyroid Stimulating Hormone (TSH) 0.78 0.55-4.78 uIU/mL Beta HCG, Quantitative 0.8 L 1.5-4.2 mIU/mL Urine Color Light-orange Yellow Urine Clarity Ex.turbid Clear Urine pH 6.0 5.0-9.0 Urine Specific [place] 1.029 1.001-1.035 Urine Protein Trace H Negative Urine Ketones Negative Negative Urine Blood Negative Negative /uL Urine Nitrite Negative Negative Urine Bilirubin Negative Negative Urine Urobilinogen Normal Negative mg/dL Urine Leukocyte Esterase Trace Negative /uL Urine RBC 3 0 - 4 /hpf Urine Microscopic WBC 7 H 0-5 /HPF Urine Squamous Epithelial Cells Many <5 /hpf Urine Bacteria None seen None Seen /hpf Urine Mucus Few None Seen Urine Glucose Normal Normal mg/dL Urine Test Negative Negative Problems(with codes): (1) Hydronephrosis with ureteral calculus Plan/Recommendation uncomplicated distal right UVJ calculus mild hydronephrosis no evidence of UTI No indication for urologic intervention continue medical expulsive therapy increase fluids outpt f/u Plan discussed with: Other MORGAN GRAYSON NP May 26, 2025 09:42
[2025-05-26] MEDS: PANTOPRAZOLE 40 MG/10 ML VIAL INJ IV SCH (09:51)
[2025-05-26] MEDS ORDERED: PANTOPRAZOLE 40 MG/10 ML VIAL INJ IV SCH (10:00)
--- NOTE | 2025-05-26 10:25 | ECG ---
[facility] Test Date: 2025-05-25 Test Time: 22:32:32 Pat Name: DIANNA LITTLEJOHN Department: Respiratoy Room: [address] [place] [address] 2 Gender: F Heel Attacher: JD : 2000 Requested By: FCO ROSEN Order Number: [id number] Reading MD: Lisandro Le Measurements Intervals [place] Rate: 87 P: 66 MT: 152 QRS: 78 QRSD: 104 T: 56 QT: 400 QTc: 482 Interpretive Statements Sinus rhythm Probable left atrial enlargement RSR' in V1 or V2, right VCD or RVH Borderline T abnormalities, anterior leads Borderline prolonged QT interval Baseline wander in lead(s) V5 Electronically Signed On 05-28-2025 15:18:33 PST by Lisandro Le Please click the below link to view image of tracing.
--- NOTE | 2025-05-26 10:36 | DVH ---
Renal ultrasound HISTORY: please check kidneys, ureter and bladder for obstruction or stone. TECHNIQUE: 2 D ultrasound was performed with transaxial and longitudinal images. FINDINGS: Right kidney measures 12.8 cm and left kidney measures 11.2 cm. No renal masses, stones or hydronephrosis. Urinary bladder unremarkable. IMPRESSION: 1. Normal ultrasound of the kidneys and urinary bladder. No stones or obstruction
[2025-05-26] MEDS: IRON SUCROSE COMPLEX 110 ML IV SCH (12:40)
[2025-05-26] MEDS ORDERED: TAMS-35 PO (16:28)
[2025-05-26] MEDS ORDERED: HYDR-4902 PO (16:28)
[2025-05-26] MEDS ORDERED: FER325T PO (16:28)
[2025-05-26] MEDS ORDERED: NALO4SPR2 (16:28)
--- NOTE | 2025-05-26 16:33 | DVHDS2 ---
Discharge Summary Date of Admission May 25, 2025 at 15:13 Date of Discharge: May 26, 2025 Labs/Diagnostic Data: Laboratory Results Test 05/26/25 05:25 05/25/25 19:55 05/25/25 07:55 05/25/25 07:53 White Blood Count 6.4 10^3/uL (4.4-10.8) Red Blood Count 3.96 10^6/uL (4.0-5.20) Hemoglobin 10.2 g/dL (12.2-16.2) Hematocrit 30.8 % (36.0-46.0) Mean Corpuscular Volume 77.8 fL (80.0-100.0) Mean Corpuscular Hemoglobin 25.7 pg (28.0-32.0) Mean Corpuscular Hemoglobin Concent 33.1 g/dL (32.0-36.0) Red Cell Distribution Width 14.9 % (11.8-14.3) Platelet Count 344 10^3/uL (140-450) Mean Platelet Volume 7.2 fL (6.9-10.8) Neutrophils (%) (Auto) 63.7 % (37.0-80.0) Lymphocytes (%) (Auto) 25.9 % (10.0-50.0) Monocytes (%) (Auto) 9.0 % (0.0-12.0) Eosinophils (%) (Auto) 1.1 % (0.0-7.0) Basophils (%) (Auto) 0.3 % (0.0-2.0) Neutrophils # (Auto) 4.1 10 ^3/uL (1.6-8.6) Lymphocytes # (Auto) 1.7 10 ^3/uL (0.4-5.4) Monocytes # (Auto) 0.6 10 ^3/uL (0-1.3) Eosinophils # (Auto) 0.1 10 ^3/uL (0-0.8) Basophils # (Auto) 0 10 ^3/uL (0-0.2) Nucleated Red Blood Cells 0.1 % Sodium Level 139 mmol/L (136-145) Potassium Level 4.0 mmol/L (3.5-5.1) Chloride Level 107 mmol/L (98-107) Carbon Dioxide Level 22 mmol/L (20-31) Anion Gap 10 (5-15) Blood Urea Nitrogen 12 mg/dL (9-23) Creatinine 1.22 mg/dL (0.550-1.02) Glomerular Filtration Rate Calc 63 mL/min (>90) BUN/Creatinine Ratio 9.8 (10.0-20.0) Serum Glucose 90 mg/dL (74-106) Calcium Level 8.7 mg/dL (8.7-10.4) Total Bilirubin 0.3 mg/dL (0.2-1.0) Aspartate Amino Transferase (AST) 19 U/L (13-40) Alanine Aminotransferase (ALT) 11 U/L (7-40) Alkaline Phosphatase 81 U/L (46-116) Total Protein 6.6 g/dL (5.7-8.2) Albumin 3.6 g/dL (3.2-4.8) Iron Level 41 ug/dL (50-170) Total Iron Binding Capacity 415 ug/dL (250-425) Percent Iron Saturation 9.9 % (15-50) Ferritin 7.5 ng/mL (10-291) Hemoglobin A1c 5.3 % A1C (<5.7) Lipase 26 U/L (12-53) Thyroid Stimulating Hormone (TSH) 0.78 uIU/mL (0.55-4.78) Beta HCG, Quantitative 0.8 mIU/mL (1.5-4.2) Urine Color Light-orange (Yellow) Urine Clarity Ex.turbid (Clear) Urine pH 6.0 (5.0-9.0) Urine Specific [place] 1.029 (1.001-1.035) Urine Protein Trace (Negative) Urine Ketones Negative (Negative) Urine Blood Negative /uL (Negative) Urine Nitrite Negative (Negative) Urine Bilirubin Negative (Negative) Urine Urobilinogen Normal mg/dL (Negative) Urine Leukocyte Esterase Trace /uL (Negative) Urine RBC 3 /hpf (0 - 4) Urine Microscopic WBC 7 /HPF (0-5) Urine Squamous Epithelial Cells Many /hpf (<5) Urine Bacteria None seen /hpf (None Seen) Urine Mucus Few (None Seen) Urine Glucose Normal mg/dL (Normal) Urine Test Negative (Negative) Other Laboratory Tests 05/26/25 05:25 Brief Hx & Hospital Course: 25-year-old young female with a known history of panic disorder currently on lorazepam, morbid obesity class three, presented to the hospital with right flank pain found to have right obstructive ureteric stone in the distal ureter with a mild hydronephrosis. Patient was eventually managed with the IV hydration as well as compulsive major as well as Flomax. Urology evaluated the patient and cleared the patient to be discharged currently patient is abdominal pain free and tolerating diet. Patient is being discharged under stable condition. Patient did receive IV iron during the hospital stay for iron- deficiency anemia denies any active evidence of bleeding. Needs to follow up with the PCP for anemia workup as an outpatient. Diet weight reduction and exercise counseling for morbid obesity class three. Condition at Discharge: Stable Final Diagnosis/Problems List 1. Right flank pain, resolved 2. Right ureteric stone in the distal ureter with a mild hydronephrosis, Urology cleared the patient to be discharged 3. Iron-deficiency anemia 4. Acute kidney injury suspected secondary to vasomotor nephropathy 5. Panic disorder 6. Morbid obesity class three, diet weight reduction and exercise counseling Discharge Disposition: Home SNF Discharge Will this Physician continue t: No Discharge Instruct/Medications Diet: Cardiac 2g Na,low cholest Activity: See Comment Activity comment: No driving, no signing legal documents, no playing on machinery while on narcotics. Follow Up/Referral: Please follow up with the PCP in 1-2 weeks, for anemia workup. Medications: As prescribed and reconciled. New Medications: Ferrous Sulfate (Ferrous Sulfate) 325 Mg Tb 1 TAB PO BID, #14 TAB 3 Refills Hydrocodone-Acetaminophen (Hydrocodone Bitartrate/AC 5-325 mg) 1 Tab Tab 1 TAB PO Q8HP PRN, #10 TAB Naloxone HCl (Narcan) 4 Mg/0.1 Ml Spr 4 MG NA GLUCOSE AND SYRUP WEIGHER, #2 SPRAY Tamsulosin Hcl (Flomax) 0.4 Mg Cap 0.4 MG PO QPM for 7 Days, #7 CAP Continued Medications: Lorazepam (Ativan) 0.5 Mg Tab 0.25 MG PO PRN for anxiety, TAB Scheduled Ferrous Sulfate (Ferrous Sulfate), 1 TAB PO BID Lorazepam (Ativan), 0.25 MG PO PRN, (Reported) Naloxone HCl (Narcan), 4 MG NA GLUCOSE AND SYRUP WEIGHER Tamsulosin Hcl (Flomax), 0.4 MG PO QPM Scheduled PRN Hydrocodone-Acetaminophen (Hydrocodone Bitartrate/AC 5-325 mg), 1 TAB PO Q8HP PRN Discharge Statement: "Patient was advised to return to the ER or call 911 if any headaches, dizziness, shortness of breath, chest pain, abdominal pain, bleeding, fevers, or worsening of medical condition. Patient was counseled about treatment plan, medications, possible side effects, patientverbalized understanding. All questions were answered to the best of my ability. This discharge took greater then 30 minutes in planning, reviewing documentation, counseling the patient, and discussing with other team members." ASSESSMENT ASSESSMENT Assessment 1. Right flank pain, resolved 2. Right ureteric stone in the distal ureter with a mild hydronephrosis, Urology cleared the patient to be discharged 3. Iron-deficiency anemia 4. Acute kidney injury suspected secondary to vasomotor nephropathy 5. Panic disorder 6. Morbid obesity class three, diet weight reduction and exercise counseling Date of Service: May 26, 2025 Billing Provider: SANTI GRECO MD Common Visit Codes: 39421-RUR/OBS DISCH DAY >30min SANTI GRECO MD May 26, 2025 16:33
[2025-05-26] MEDS: TAMSULOSIN HYDROCHLORIDE 0.4 MG CAP PO SCH (18:21)
[2025-05-27 01:00] VITALS: BP 111/70; PULSE 96; RESP 18; TEMP 97.8; O2SAT 97
[2025-05-27 05:00] VITALS: BP 120/78; PULSE 105; RESP 18; TEMP 98.2; O2SAT 96
[2025-05-27 08:00] VITALS: PULSE 89; RESP 18; O2SAT 98
[2025-05-27 09:00] VITALS: BP 109/82; PULSE 84; RESP 20; TEMP 99.2; O2SAT 98
[2025-05-27 12:23] VITALS: TEMP 97.8
--- NOTE | 2025-05-27 16:17 | DVHPN2 ---
Subjective Patient's discharge was held yesterday because of the right flank pain. Patient is stable to be discharged today. Changes from previous H/P or p: No Changes Eyes: No Pain, No Vision change, No Conjunctivae inflammation, No Eyelid inflammation, No Other, No Redness ENT: No Ear pain, No Ear discharge, No Nose pain, No Nose discharge, No Nose congestion, No Mouth pain, No Mouth swelling, No Throat pain, No Throat swelling, No Other Cardiovascular: No Chest Pain, No Palpitations, No Orthopnea, No Paroxysmal Noc. Dyspnea, No Edema, No Lt Headedness, No Other Respiratory: No Cough, No Dry, No Shortness of breath, No SOB with excertion, No Wheezing, No Hemoptysis, No Pleuritic Pain, No Sputum, No Other Gastrointestinal: No Nausea, No Vomiting, No Abdominal Pain, No Diarrhea, No Constipation, No Melena, No Hematochezia, No Other Genitourinary: Dysuria, Frequency Musculoskeletal: No other, No neck pain, No shoulder pain, No arm pain; back pain; No hand pain, No leg pain, No foot pain Skin: No Rash, No Lesions, No Jaundice, No Bruising, No Other Objective Vitals Vital Signs Date Time Temp Pulse Resp B/P (MAP) Pulse Ox O2 Delivery O2 Flow Rate FiO2 05/27/25 12:23 97.8 05/27/25 09:00 84 20 109/82 (91) 98 05/27/25 08:00 Room Air* 0 21 Intake/Output Intake and Output 05/27/25 07:00 Intake Total 1455 ml Balance 1455 ml Intake Oral 345 ml IV Total 1110 ml # Voids 6 Exam HEENT pupils are reactive Neck is supple CV is S1-S2 regular rate and rhythm Respiratory diminished breath sounds bases GI positive bowel sound Extremity no edema [employer] no motor deficit Medications Current Medications Medications Dose Ordered Sig/Adriana Route Start Time Stop Time Status Last Admin Dose Admin Pantoprazole Sodium 40 mg DAILY IV 05/26/25 10:00 Cancel Laboratory Results Laboratory Tests 05/26/25 05:25 Urinalysis Test 05/25/25 07:53 Urine Color Light-orange (Yellow) Urine Clarity Ex.turbid (Clear) Urine pH 6.0 (5.0-9.0) Urine Specific [place] 1.029 (1.001-1.035) Urine Protein Trace (Negative) H Urine Ketones Negative (Negative) Urine Blood Negative /uL (Negative) Urine Nitrite Negative (Negative) Urine Bilirubin Negative (Negative) Urine Urobilinogen Normal mg/dL (Negative) Urine Leukocyte Esterase Trace /uL (Negative) Urine RBC 3 /hpf (0 - 4) Urine Microscopic WBC 7 /HPF (0-5) H Urine Squamous Epithelial Cells Many /hpf (<5) Urine Bacteria None seen /hpf (None Seen) Urine Mucus Few (None Seen) Urine Glucose Normal mg/dL (Normal) Urine Test Negative (Negative) Microbiology Microbiology Date/Time Source Procedure Growth Status 05/26/25 08:25 Voided Urine Urine Culture - Preliminary Resulted 05/25/25 20:00 Blood Blood Culture - Preliminary NO GROWTH AFTER 24 HOURS OF INCUBATION. Resulted Assessment/Plan Assessment/Plan 1. Right flank pain, resolved 2. Right ureteric stone in the distal ureter with a mild hydronephrosis, Urology cleared the patient to be discharged 3. Iron-deficiency anemia 4. Acute kidney injury suspected secondary to vasomotor nephropathy 5. Panic disorder 6. Morbid obesity class three, diet weight reduction and exercise counseling -pain meds as needed, discharge plan today. Plan discussed with: Patient My Orders Orders - SANTI GRECO MD Procedure Category Date Status Time Discharge DISCHARGE 05/26/25 Transmitted 16:29 Date of Service: May 27, 2025 Billing Provider: SANTI GRECO MD Common Visit Codes: [id number] INP/OBS CARE(MOD) SANTI GRECO MD May 27, 2025 16:17
== END 2025-05-27 13:56 | disposition home or self-care (01) | DRG 694 ==
LOC: ER 07:18 → OVERFLOW 15:13 → TELE-EAST 15:14
PROVIDERS: ADMIT Student in an Organized Health Care Education/Training Program
DX: N13.2 Hydronephrosis with renal and ureteral calculous obstruction (principal); N17.0 Acute kidney failure with tubular necrosis; Z68.43 Body mass index [BMI] 50.0-59.9, adult; D50.9 Iron deficiency anemia, unspecified; E66.813 Obesity, class 3; F41.0 Panic disorder [episodic paroxysmal anxiety]; K57.30 Diverticulosis of large intestine without perforation or abscess without bleeding; Z82.3 Family history of stroke; Z82.49 Family history of ischemic heart disease and other diseases of the circulatory system
CPT/HCPCS: 36415; 74177; 76775; 80053; 81001; 81025; 82728; 83036; 83540; 83550; 83690; 84443; 84702; 85025; 87040; 87086; 93005; G0378; J1756; J1885; J2405; J2470